=== PATIENT | female | born 1960 | race Caucasian/White ===

== ENCOUNTER 2016-04-18 09:19 | Emergency (ER) | payer OTHER ==
[2016-04-18 09:27] VITALS: RESP 16
--- NOTE | 2016-04-18 09:45 | CPEKG ---
Heart Rate: 78 RR Interval: 769 P-R Interval: 160 QRSD Interval: 98 QT Interval: 424 QTC Interval: 484 P Spencer: 62 QRS Spencer: 29 T Wave Spencer: 52 EKG Severity - ABNORMAL ECG - EKG Impression: SINUS RHYTHM EKG Impression: VENTRICULAR TRIGEMINY Electronically Signed By: Kenya Ayala 18-Apr-2016 17:53:21
--- NOTE | 2016-04-18 09:46 | EDPHY ---
H & P Stated Complaint: R Knee Pain post fall last PM Time Seen by Provider: 04/18/16 09:35 HPI/ROS: CHIEF COMPLAINT: Syncope, knee pain. HISTORY OF PRESENT ILLNESS: The patient is a 55-year-old female who presents after a syncopal episode last night at 2030. She was in her kitchen when she felt flushed, "prickly," and dizzy, then fainted. She struck her knee on the ground when she fainted. She then had vomiting, lower crampy abdominal pain, and diarrhea which was not present prior to the episode. Those symptoms lasted an hour then resolved. There was no preceding chest pain or shortness of breath. She is now complaining of right-sided knee pain worsened with movement. No fever, chills, chest pain, shortness of breath, palpitations, vomiting, diarrhea, urinary complaints, headache, lightheadedness. REVIEW OF SYSTEMS: Aside from elements discussed in the HPI, a comprehensive 10-point review of systems was reviewed and is negative. PAST MEDICAL HISTORY: Hypothyroidism, hypertension, PVCs, hyperlipidemia, cholecystectomy. SOCIAL HISTORY: . VITAL SIGNS: Reviewed by me GENERAL: Well-developed, well-nourished, resting comfortably in no respiratory distress. HEENT: Atraumatic. Eyes: No icterus, no injection. Mouth: moist mucous membranes. No erythema or lesions. Neck: supple with no adenopathy. LUNGS: Clear to auscultation bilaterally, no wheezes, rhonchi or rales. CARDIAC: Slightly irregular, no rubs, murmurs or gallops. ABDOMEN: Soft, nontender, nondistended, bowel sounds normal. BACK: No CVA tenderness. EXTREMITIES: No edema. Right knee: swelling and bruising to the medial aspect. Tenderness to palpation along the medial joint line. Pain with flexion. NEURO: Alert and oriented, grossly nonfocal. SKIN: Warm and dry, no rash. PSYCHIATRIC: Normal mentation, no agitation. Portions of this note were transcribed by a medical assisting program director. I personally performed a history, physical exam, medical decision making, and confirmed accuracy of information the transcribed note. Source: Patient Exam Limitations: No limitations - Personal History Current Tetanus/Diphtheria Vaccine: Yes Current Tetanus Diphtheria and Acellular Pertussis (TDAP): Yes - Medical/Surgical History Hx Asthma: No Hx Chronic Respiratory Disease: No Hx Diabetes: No Hx Cardiac Disease: No Hx Renal Disease: No Hx Cirrhosis: No Hx Alcoholism: No Hx HIV/AIDS: No Hx Splenectomy or Spleen Trauma: No Other PMH: Hypothyroid, HTN - Social History Smoking Status: Never smoked Constitutional: Initial Vital Signs Temperature (C) 36.4 C 04/18/16 09:23 Heart Rate 53 L 04/18/16 09:23 Respiratory Rate 16 04/18/16 09:23 Blood Pressure 136/73 H 04/18/16 09:23 O2 Sat (%) 98 04/18/16 09:23 O2 Delivery Mode Room Air Allergies/Adverse Reactions: dermabond Allergy (Uncoded 04/18/16 09:22) Home Medications: Medication Instructions Recorded Hydrocodone/APAP 5/325 [[place] 1 tab PO Q6H PRN #10 tab 04/18/16 5/325 (RX)] Medical Decision Making - Diagnostics EKG Interpretation: 12-LEAD EKG: Please see the full report in [facility]. My interpretation: Normal sinus rhythm, ventricular trigeminy. Imaging: X-ray right knee was obtained. I viewed the images myself on the PACS system. The radiologist interpretation is: Subtle medial tibial plateau compression fracture versus anatomic variation. I discussed the x-ray findings with the patient. Study: MRI of the: Right knee. Indication: Trauma Results: 1. Partial tear proximal medial collateral ligament. 2. Mild early degenerative change medial and lateral compartment without meniscal tear. 3. Grade 2 and early grade 3 articular cartilage disease patellofemoral compartment. The study was read by the radiologist Dr. Crouch. I viewed the images myself on the PACS system. ED Course/Re-evaluation: An IV was established and labs ordered. Right knee x-ray and EKG obtained. Patient's labwork unremarkable. 1055: X-ray results conveyed to me by Dr. Shea show an undulation at the tibial plateau, query tibial plateau fracture versus ligamentous injury. Orthopedics will be consulted. 1057: Consulted with Dr. Montez, orthopedics. He will see the patient in his office tomorrow morning and recommends MRI imaging today in the ED. I discussed this with the patient. She is comfortable with the plan. 1243: Consulted with Dr. Marvin, cardiology. Patient's is a [facility] patient. Dr. Marvin reviewed the patient's medical records, EKG, and will follow up the patient tomorrow. 1325: MRI results reported to me as partial tear of MCL. I discussed this with the patient and answered her questions. She understands to follow up with cardiology and orthopedics. She was given NSAID instructions. She is comfortable with the plan. Differential Diagnosis: Differential diagnosis for the patient's syncope was considered including but not limited to vasovagal syncope, arrhythmia, dehydration, and blood loss. Differential diagnosis for the patient's injury was considered including but not limited to contusion, abrasion, laceration, fracture, open fracture, or dislocation. - Data Points Laboratory Results: Laboratory Results 04/18/16 10:00 04/18/16 10:00 04/18/16 04/18/16 04/18/16 10:00 10:00 10:00 WBC 9.67 10^3/uL H 10^3/uL (3.80-9.50) RBC 4.49 10^6/uL 10^6/uL (4.18-5.33) Hgb 14.2 g/dL g/dL (12.6-16.3) Hct 41.4 % % (38.0-47.0) MCV 92.2 fL fL (81.5-99.8) MCH 31.6 pg pg (27.9-34.1) MCHC 34.3 g/dL g/dL (32.4-36.7) RDW 13.0 % % (11.5-15.2) Plt Count 242 10^3/uL 10^3/uL (150-400) MPV 10.0 fL fL (8.7-11.7) Neut % (Auto) 76.1 % H % (39.3-74.2) Lymph % (Auto) 17.5 % % (15.0-45.0) Perry % (Auto) 4.0 % L % (4.5-13.0) Eos % (Auto) 1.1 % % (0.6-7.6) Baso % (Auto) 0.9 % % (0.3-1.7) Nucleat RBC Rel Count 0.0 % % (0.0-0.2) Absolute Neuts (auto) 7.35 10^3/uL H 10^3/uL (1.70-6.50) Absolute Lymphs (auto) 1.69 10^3/uL 10^3/uL (1.00-3.00) Absolute Monos (auto) 0.39 10^3/uL 10^3/uL (0.30-0.80) Absolute Eos (auto) 0.11 10^3/uL 10^3/uL (0.03-0.40) Absolute Basos (auto) 0.09 10^3/uL 10^3/uL (0.02-0.10) Absolute Nucleated RBC 0.00 10^3/uL 10^3/uL (0-0.01) Immature Gran % 0.4 % % (0.0-1.1) Immature Gran # 0.04 10^3/uL 10^3/uL (0.00-0.10) D-Dimer < 0.27 ug/mLFEU ug/mLFEU (0.00-0.50) Sodium 141 mEq/L mEq/L (134-144) Potassium 4.4 mEq/L mEq/L (3.5-5.2) Chloride 106 mEq/L mEq/L (97-110) Carbon Dioxide 23 mEq/l mEq/l (22-31) Anion Gap 12 mEq/L mEq/L (8-16) BUN 12 mg/dL mg/dL (7-23) Creatinine 0.9 mg/dL mg/dL (0.6-1.0) Estimated GFR > 60 Glucose 93 mg/dL mg/dL (70-100) Calcium 9.4 mg/dL mg/dL (8.5-10.4) Total Bilirubin 1.4 mg/dL mg/dL (0.1-1.4) Conjugated Bilirubin 0.3 mg/dL mg/dL (0.0-0.5) Unconjugated Bilirubin 1.1 mg/dL mg/dL (0.0-1.1) AST 26 IU/L IU/L (14-46) ALT 36 IU/L IU/L (9-52) Alkaline Phosphatase 60 IU/L IU/L (38-126) Troponin I < 0.012 ng/mL ng/mL (0-0.034) Total Protein 7.7 g/dL g/dL (6.3-8.2) Albumin 4.4 g/dL g/dL (3.5-5.0) Lipase 59.0 IU/L IU/L (23-300) Departure - Departure Disposition: Home, Routine, Self-Care Clinical Impression: Syncope Qualifiers: Syncope type: unspecified Qualified Code(s): R55 - Syncope and collapse Tear of MCL (medial collateral ligament) of knee Qualifiers: Encounter type: initial encounter Laterality: right Qualified Code(s): S83.411A - Sprain of medial collateral ligament of right knee, initial encounter Condition: Good Instructions: Knee Sprain (ED), Syncope (ED) Additional Instructions: Call Dr. Montez, orthopedics, tomorrow morning to set up a follow up appointment. You have an echocardiogram with Dr. Marvin scheduled for 11:30 on April 21 at his [place] office. You will wear a Holter monitor after this echocardiogram. You also have a follow up appointment scheduled for May 03 at 10:[address] Marvin at his office in the [facility]. His telephone number is [phone] and can call with questions. Mainstay of therapy for your knee is rest, ice, immobilization, elevation, and nonsteroidal anti-inflammatories for pain and to decrease swelling. Apply ice for 20-30 minutes every 2-3 hours for the next 48 hours. I recommend Ibuprofen (Motrin,Advil) or Naproxen Sodium (Aleve) for pain and anti-inflammatory effects. You may take either one, but do not take both. Your dose is: Ibuprofen 600mg every 6-8 hours with food. OR Naproxen Sodium (Aleve) 220mg every 12 hours. Return to the emergency department for any serious worsening of condition. Referrals: Emir Montez MD [Medical Doctor] - As per Instructions Yordan Marvin MD [Medical Doctor] - As per Instructions Prescriptions: Hydrocodone/APAP 5/325 [[place] 5/325 (RX)] 1 tab PO Q6H PRN #10 tab PRN Reason: Pain Report Scribed for: Kenya Ayala Report Scribed by: Hubert Smyth Date of Report: 04/18/16 Time of Report: 09:47
[2016-04-18 10:10] LABS: % IMMATURE GRANULYOCYTES 0.4 % (0.0-1.1); ABSOLUTE IMMATURE GRANULOCYTES 0.04 10^3/uL (0.00-0.10); ADD DIFF? NO; ADD MORPH? NO; ADD SCAN? NO; ATYPICAL LYMPHOCYTE FLAG 0 (0-99); FRAGMENT RBC FLAG 0 (0-99); HEMATOCRIT 41.4 % (38.0-47.0); HEMOGLOBIN 14.2 g/dL (12.6-16.3); LEFT SHIFT FLG 0 (0-99); LIPEMIA HEMOLYSIS FLAG 90 (0-99); MEAN CELL HEMOGLOBIN 31.6 pg (27.9-34.1); MEAN CELL HEMOGLOBIN CONCENTR. 34.3 g/dL (32.4-36.7); MEAN CELL VOLUME 92.2 fL (81.5-99.8); PLATELET CLUMPS FLAG 0 (0-99); PLATELET COUNT 242 10^3/uL (150-400); RED BLOOD CELL COUNT 4.49 10^6/uL (4.18-5.33)
[2016-04-18 10:24] LABS: ALANINE AMINOTRANSFERASE 36 IU/L (9-52); ALBUMIN 4.4 g/dL (3.5-5.0); ALKALINE PHOSPHATASE 60 IU/L (38-126); ANION GAP 12 mEq/L (8-16); ASPARTATE AMINOTRANSFERASE 26 IU/L (14-46); BILIRUBIN,TOTAL 1.4 mg/dL (0.1-1.4); BILIRUBIN-CONJUGATED 0.3 mg/dL (0.0-0.5); BILIRUBIN-UNCONJUGATED 1.1 mg/dL (0.0-1.1); CALCIUM 9.4 mg/dL (8.5-10.4); CARBON DIOXIDE 23 mEq/l (22-31); CHLORIDE 106 mEq/L (97-110); CREATININE 0.9 mg/dL (0.6-1.0); GLOMERULAR FILTRATION RATE > 60; GLUCOSE 93 mg/dL (70-100); POTASSIUM 4.4 mEq/L (3.5-5.2); SODIUM 141 mEq/L (134-144); TOTAL PROTEIN 7.7 g/dL (6.3-8.2)
[2016-04-18 10:34] LABS: TROPONIN I < 0.012 ng/mL (0-0.034)
[2016-04-18 13:59] VITALS: BP 136/88; PULSE 75; TEMP 98.2; O2SAT 96
== END 2016-04-18 13:58 | disposition home or self-care (01) ==
DX: R55 Syncope and collapse (principal); S83.411A Sprain of medial collateral ligament of right knee, initial encounter; I10 Essential (primary) hypertension; W18.09XA Striking against other object with subsequent fall, initial encounter; Y92.000 Kitchen of unspecified non-institutional (private) residence as the place of occurrence of the external cause

== ENCOUNTER → 2016-08-03 | Outpatient (CLI) | payer OTHER | LOC: FIMAGING 09:35 | PROVIDERS: ATTEND Internal Medicine Geriatric Medicine | DX: K76.89 Other specified diseases of liver (principal) ==

== ENCOUNTER → 2016-09-29 | Outpatient (CLI) | payer OTHER | LOC: FIMAGING 12:00 | PROVIDERS: ATTEND Internal Medicine Geriatric Medicine | DX: Z12.31 Encounter for screening mammogram for malignant neoplasm of breast (principal) | CPT/HCPCS: G0202 ==